=== PATIENT | male | born 1995 | race Caucasian/White ===

== ENCOUNTER 2017-02-25 22:45 | Emergency (ER) | payer OTHER ==
[~2017-02-25] VITALS: Ht 193 cm; Wt 74.8 kg
[~2017-02-25 22:45] MED LIST: ALEV220T26 PO; NO HOME MEDS
[2017-02-26] MEDS ORDERED: IBUP600T26 PO (00:40)
[2017-02-26] MEDS ORDERED: CYCL10TA PO (00:41)
[2017-02-26] MEDS ORDERED: NORCO 5/325MG TABLET (BULK FOR ED) PO ONE (00:45)
[2017-02-26] MEDS ORDERED: PERCOCET 5MG/325MG TAB PO ONE (00:45)
[2017-02-26 01:16] VITALS: BP 132/70
--- NOTE | 2017-02-26 06:55 | REP ---
Clinical: Trauma. Technique: AP, lateral views of the left knee Findings: The osseous structures and joint spaces are intact and normal. There is no evidence for acute fracture or dislocation. No joint effusion is appreciated. Surrounding soft tissues are unremarkable. No subcutaneous emphysema or radiodense foreign body. Impression: Normal examination. No acute fracture or dislocation. Signed by Vickey Chaudhary MD 02/26/2017 06:46 A
--- NOTE | 2017-02-26 06:59 | REP ---
Clinical: Trauma . Comparison: 02/03/2014 . Technique: PA and lateral. Findings: The mediastinum and cardiac silhouette are normal. The lung [place] are clear and without acute consolidation, effusion, or pneumothorax. The skeletal structures are intact and normal. Impression: 1. No acute cardiopulmonary process. Signed by Vickey Chaudhary MD 02/26/2017 06:50 A
--- NOTE | 2017-02-26 06:59 | REP ---
Clinical: Trauma. Technique: AP, lateral views of the right tibia / fibula Findings: The osseous structures and joint spaces are intact and normal. There is no evidence for acute fracture or dislocation. Surrounding soft tissues are unremarkable. No subcutaneous emphysema or radiodense foreign body. Impression: Normal examination. No acute fracture or dislocation. Signed by Vickey Chaudhary MD 02/26/2017 06:50 A
== END 2017-02-26 01:33 | disposition home or self-care (01) ==
LOC: M ED 02-26 00:52
DX: Z04.1 Encounter for examination and observation following transport accident (principal); V43.52XA Car driver injured in collision with other type car in traffic accident, initial encounter; Y92.410 Unspecified street and highway as the place of occurrence of the external cause; Y93.89 Activity, other specified; Y99.8 Other external cause status